=== PATIENT | female | born 1965 | race Caucasian/White ===

== ENCOUNTER → 2018-10-16 | Outpatient (CLI) | payer OTHER | LOC: MC.RAD 07:15 | DX: Z12.31 Encounter for screening mammogram for malignant neoplasm of breast (principal) ==

== ENCOUNTER → 2018-10-21 | Outpatient (CLI) | payer OTHER | LOC: COL.LAB 14:54 | DX: R19.7 Diarrhea, unspecified (principal) ==

== ENCOUNTER → 2020-05-13 | Outpatient (CLI) | payer OTHER | LOC: MC.RAD 14:33 | DX: Z12.31 Encounter for screening mammogram for malignant neoplasm of breast (principal) ==

== ENCOUNTER → 2021-05-18 | Outpatient (CLI) | payer OTHER | LOC: MC.RAD 08:37 | DX: Z12.31 Encounter for screening mammogram for malignant neoplasm of breast (principal) ==

== ENCOUNTER 2022-04-14 07:05 | Day surgery (SDC) | payer OTHER ==
[~2022-04-14] VITALS: Ht 170.2 cm; Wt 81.4 kg
[2022-04-14 07:39] VITALS: BP 95/67; PULSE 73; TEMP 96.2
[2022-04-14] MEDS ORDERED: DESYREL 100MG100 MG PO (07:42)
[2022-04-14] MEDS ORDERED: MELATONIN3 M1 PO (07:42)
[2022-04-14] MEDS ORDERED: VITAMIN D31000 I1 PO (07:43)
[2022-04-14] MEDS ORDERED: BIOTIN2500 MCG PO (07:44)
[2022-04-14] MEDS ORDERED: MULTI VITAMINS1 TAB PO (07:44)
[2022-04-14 08:40] VITALS: BP 100/59; PULSE 63; TEMP 96.9
--- NOTE | 2022-04-14 08:45 | NUR ---
0840 - PT arrives drowsy but oriented; assited ambulating from cart to chair 2:1. Montiors applied and VSS. PT denies pain/nasuea; warm blankets provided. PT oriented to room and call dickerson, within reach. PT provided snack and drink. Will monitor per intervals. Non-slip socks remain on. Verbal report obtained.
[2022-04-14 08:55] VITALS: BP 97/65; PULSE 62
--- NOTE | 2022-04-14 08:55 | NUR ---
0855 - [facility]. PT expressed desire to be discharged. PT has finished snack and drink; denies pain/nasuea. Call dickerson within reach if needed. PT denies having question following visit w/
[2022-04-14 09:10] VITALS: BP 126/77; PULSE 61
--- NOTE | 2022-04-14 09:16 | NUR ---
0910 - VSS. IV discontinued. Catheter tip intact. Pressure bandage applied; no redness or swelling noted. DC instructions and educational material revewed w/ PT who verbalized understanding and signed the realted paperwork. Questions answered to PT satisfaction. PT refused RN assistance changing into personal belongings. Call dickerson remains within reach if needed.
--- NOTE | 2022-04-14 09:21 | NUR ---
0920 - PT dismissed from endo via wheelchair by an RN; PT has DC packet and personal belonings. PT was transferred into the care of her father, who is driving private car.
== END 2022-04-14 09:20 | disposition home or self-care (01) ==
LOC: SDCO 07:05
DX: K57.30 Diverticulosis of large intestine without perforation or abscess without bleeding (principal); K64.0 First degree hemorrhoids; Z80.0 Family history of malignant neoplasm of digestive organs; Z79.899 Other long term (current) drug therapy; K58.0 Irritable bowel syndrome with diarrhea
CPT/HCPCS: J2704; J7030

== ENCOUNTER → 2022-06-20 | Outpatient (CLI) | payer OTHER ==
[~2022-06-20] MED LIST: BIOTIN2500 MCG PO; DESYREL 100MG100 MG PO; MELATONIN3 M1 PO; MULTI VITAMINS1 TAB PO; VITAMIN D31000 I1 PO
== END ==
LOC: MC.RAD 15:26
DX: Z12.31 Encounter for screening mammogram for malignant neoplasm of breast (principal)

== ENCOUNTER → 2023-11-06 | Outpatient (CLI) | payer OTHER | LOC: COL.RAD 09:11 | DX: M25.551 Pain in right hip (principal); M25.552 Pain in left hip | CPT/HCPCS: A9503-JZ ==